=== PATIENT | female | born 1995 | race Caucasian/White ===

== ENCOUNTER 2017-02-21 11:59 | Emergency (ER) | payer OTHER ==
[2017-02-21 12:41] VITALS: BP 108/63
--- NOTE | 2017-02-21 13:35 | UC ---
Complaint Female HPI - HPI Summary HPI Summary: Patient has had urinary incontinence for over 1 year, feels pressure and sometimes cant make it to the bathroom. starting having dysuria 2 days ago. - History Of Current Complaint Chief Complaint: UCGU Stated Complaint: URINARY Time Seen by Provider: 02/21/17 12:41 Hx Obtained From: Patient Hx Last Menstrual Period: 02/15/17 ?: No Onset/Duration: Sudden Onset, Lasting Days Timing: Lasting Days Severity Initially: Moderate Severity Currently: Moderate Character: Burning Aggravating Factor(s): Urination - Allergies/Home Medications Allergies/Adverse Reactions: Allergies Allergy/AdvReac Type Severity Reaction Status Date / Time No Known Allergies Allergy Verified 02/21/17 12:41 PMH/Surg Hx/FS Hx/Imm Hx Previously Healthy: Yes - Surgical History Surgical History: None - Family History Known Family History: Positive: None Negative: Hypertension - Social History Alcohol Use: None Substance Use Type: None Smoking Status (MU): Former Smoker When Did the Patient Quit Smoking/Using Tobacco: 10/08 - Immunization History Most Recent Influenza Vaccination: Not the Season Vaccination Up to Date: Yes Review of Systems Constitutional: Negative Skin: Negative Eyes: Negative ENT: Negative Respiratory: Negative Cardiovascular: Negative Gastrointestinal: Negative Genitourinary: Dysuria, Other - incontinence Motor: Negative Neurovascular: Negative Musculoskeletal: Negative Neurological: Negative Psychological: Negative All Other Systems Reviewed And Are Negative: Yes Physical Exam Triage Information Reviewed: Yes Appearance: Well-Appearing, Well-Nourished, Pain Distress Vital Signs: Initial Vital Signs Temp 97.4 F 02/21/17 12:36 Pulse 61 02/21/17 12:36 Resp 16 02/21/17 12:36 BP 108/63 02/21/17 12:36 Pulse Ox 99 02/21/17 12:36 Vital Signs Reviewed: Yes Eye Exam: Normal ENT Exam: Normal Dental Exam: Normal Neck exam: Normal Respiratory Exam: Normal Cardiovascular Exam: Normal Abdominal Exam: Normal Abdomen Description: Positive: Nontender, No Organomegaly, Soft, Other: - Pelvic exam: outer labia red and irritated, no lesions noted, vaginal velasco pink , white cheesey discharge, no cervical motion tenderness, manual exam normal Bowel Sounds: Positive: Present Musculoskeletal Exam: Normal Musculoskeletal: Positive: Strength Intact, ROM Intact, No Edema Neurological Exam: Normal Neurological: Positive: Alert, Muscle Tone Normal Psychological Exam: Normal Skin Exam: Normal Complaint Female Dx - Course Course Of Treatment: hx obtained, exam performed ,meds reviewed, pelvic exam performed, treated for vaginitis, no treatment for UTI given, urine culture obtained and sent. Referral to urology for her urge incontinence - Differential Dx/Diagnosis Differential Diagnosis/HQI/PQRI: Cervicitis, Sexually Transmitted Disease, Ureteral Stone, Urinary Tract Infection Provider Diagnoses: vagintitis. dysuria. urge incontinence Discharge - Discharge Plan Condition: Stable Disposition: HOME Prescriptions: Fluconazole [Diflucan 150 MG (NF)] 150 mg PO WEEKLY #2 tab Patient Education Materials: Urinary Incontinence (ED), Vaginitis (ED) Referrals: Alysha Santos MD [Medical Doctor] - Sourav Anthony MD,Pravin Mirza [Medical Doctor] - Additional Instructions: 1. take the medication as prescribed. 2. Follow up with Urology for the incontinence
--- NOTE | 2017-02-23 07:13 | UC ---
Progress - Progress Note Progress Note: note reviewed along with HPI and exam. Vaginitis suggested clinically. I have sent Rx for flagyl bid for 10 days.
== END 2017-02-21 13:34 | disposition home or self-care (01) ==
LOC: UCCORT 11:59
DX: N76.0 Acute vaginitis (principal); R30.0 Dysuria; N39.41 Urge incontinence; Z87.891 Personal history of nicotine dependence
CPT/HCPCS: 81003; 87086; 87480; 87491; 87510; 87591; 87661; 99212; G0463

== ENCOUNTER 2017-08-24 20:04 | Emergency (ER) | payer OTHER ==
[2017-08-24 20:11] VITALS: BP 136/88
== END 2017-08-24 21:45 | disposition left against medical advice (07) ==
LOC: ED 20:04
DX: R45.851 Suicidal ideations (principal); Z53.21 Procedure and treatment not carried out due to patient leaving prior to being seen by health care provider

== ENCOUNTER 2017-08-25 12:29 | Inpatient (IN) | payer OTHER ==
[2017-08-25 13:42] LABS: ABS Basophils 0 10^3/ul (0-0.2); ABS Eosinophils 0.1 10^3/ul (0-0.6); ABS Lymphocytes 2.1 10^3/ul (1.0-4.8); ABS Monocytes 0.5 10^3/ul (0-0.8); ABS Neutrophils 6.1 10^3/ul (1.5-7.7); ABS Nucleated RBC 0 10^3/ul; Eosinophil % 1.6 % (0-6); Hematocrit 38 % (35-47); Hemoglobin 13.4 g/dl (12.0-16.0); Lymphocyte % 23.7 % (25-47); Mean Corpuscular HGB Conc 35 g/dl (31-36); Mean Corpuscular Hemoglobin 30 pg (27-31); Mean Corpuscular Volume 87 fL (80-97); Mean Platelet Volume 9 um3 (7.4-10.4); Nucleated Red Blood Cells % 0; Platelet Count 230 10^3/ul (150-450); Red Cell Distribution Width 12 % (10.5-15); White Blood Count 8.9 10^3/ul (3.5-10.8)
[2017-08-25 13:42] LABS: Urine Appearance Cloudy; Urine Blood Negative (Negative); Urine Color Yellow; Urine Ketones Negative (Negative); Urine Protein Negative (Negative); Urine Specific Gravity 1.016 (1.010-1.030); Urine Urobilinogen Negative (Negative)
[2017-08-25 14:03] LABS: EGFR Non-African American 102.3 (>60)
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
[2017-08-25] MEDS ORDERED: Mouth Piece, Nicotine* 1 EACH CARTRIDGE INH SCH (21:06)
[2017-08-25] MEDS ORDERED: Acetaminophen TAB* 325 MG PO PRN (21:07)
[2017-08-25] MEDS ORDERED: Al Hydrox/Mg Hydrox/Simet LIQ* 30 ML UDC PO PRN (21:07)
[2017-08-25] MEDS ORDERED: hydrOXYzine HCL TAB* 25 MG PO PRN (21:20)
[2017-08-25] MEDS ORDERED: hydrOXYzine HCL TAB* 25 MG ONE (21:27)
[2017-08-26] MEDS: Vitamin THERAPEUTIC TAB PO SCH (09:36)
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
--- NOTE | 2017-08-26 13:33 | PN ---
[facility]HU: Group Therapy Note - Service Type Service Type: 48010 Group Psychotherapy - Cognitive Behavioral Group Therapy ( CBT):Patient was attentive and participatory in CBT programming this morning, and remained in good behavioral control. Patient expressed positive insights regarding relevant treatment interventions and goals.
[2017-08-26] MEDS ORDERED: ARIPiprazole TAB* 2 MG PO ONE (15:05)
[2017-08-26] MEDS ORDERED: Gabapentin CAP(*) 300 MG PO PRN (15:51)
[2017-08-26] MEDS: clonazePAM TAB(*) 0.5 MG PO SCH (16:25)
[2017-08-26] MEDS: Prazosin CAP* 1 MG PO SCH (20:40)
[2017-08-27] MEDS ORDERED: ARIPiprazole TAB* 5 MG PO SCH (09:00)
[2017-08-27] MEDS: Vitamin THERAPEUTIC TAB PO SCH (09:08)
[2017-08-27] MEDS: clonazePAM TAB(*) 0.5 MG PO SCH ×2 (09:08→16:59)
[2017-08-27] MEDS: Methylphenidate TAB* 5 MG PO SCH ×2 (09:08→13:41)
[2017-08-27] MEDS: Prazosin CAP* 1 MG PO SCH (20:51)
[2017-08-28] MEDS: ARIPiprazole TAB* 5 MG PO SCH (08:16)
[2017-08-28] MEDS: Vitamin THERAPEUTIC TAB PO SCH (08:17)
[2017-08-28] MEDS: clonazePAM TAB(*) 0.5 MG PO SCH ×2 (08:19→16:11)
[2017-08-28] MEDS: Methylphenidate TAB* 5 MG PO SCH ×2 (08:19→13:29)
[2017-08-28] MEDS: Nicotine Inhaler* 10 MG AMP INH PRN ×2 (09:59→16:11)
--- NOTE | 2017-08-28 17:30 | PN ---
Subjective - Subjective Subjective: Mood is improving, she feels less depressed and anxious. She denies SI or urges for sib. She is sleeping longer but sleep is restless, she woke up early this morning and could not go back to sleep. She denies side effects from prescribed meds. Per staff, she is visible in the milieu and adherent to routines. Objective - Appearance Appearance: Healthy Appearing Dysmorphic Features: No Hygiene: Normal Grooming: Well Kept - Behavior Psychomotor Activities: Normal Exhibits Abnormal Movement: No - Attitude and Relatedness Attitude and Relatedness: Superficially Cooperative Eye Contact: Fair - Speech Quality: Unpressured Latencies: Normal Quantity: Appropriate - Mood Patient's Decription of Mood: better - Affect Observed Affect: Constricted Affect Consistent with: Dysphoria - Thought Process Patient's Thought Process: Coherent, Goal Directed Thought Content: No Passive Wish, No Suicidal Planning, No Homicidal Ideation, No Paranoid Ideation - Sensorium Experiencing Hallucinations: No, Sensorium is Clear - Level of Consciousness Level of Consciousness: Alert Orientation: Yes Intact - Impulse Control Impulse Control: Intact - Insight and Judgement Insight and Judgement: Poor - Group Participation Particating in Group Activities: Yes - Medication Management Medication Management Adherence: Yes Assessment - Assessment Merits Inpatient Hospitalization: For Ongoing Evaluation, Consolidate Improvements, For Discharge Planning Inpatient DSM-IV Dx: PTSD; Bioplar II; ADHD; Clinical Impression: Stabilizing in this structured setting with subjective improvements in previous mood and anxiety symptoms, absence of SI or urges for SIB. Tolerating medication trials. She needs continued admission for stabilization. Plan - Plan Treatment Plan: Name: MARLYN FREIRE Birthdate: 1995 [id number] Medications: Current Medications Acetaminophen (Tylenol Tab*) 650 mg PO Q4H PRN PRN Reason: PAIN or TEMP > 101 F Last Admin: 08/27/17 18:08 Dose: 650 mg Al Hydrox/Mg Hydrox/Simethicone (Maalox Plus*) 30 ml PO Q4H PRN PRN Reason: INDIGESTION Aripiprazole (Abilify Tab*) 7.5 mg PO DAILY [facility] Last Admin: 08/28/17 08:16 Dose: 7.5 mg Clonazepam (Klonopin Tab(*)) 0.5 mg PO BID@0900,1700 [facility] Last Admin: 02/04/18 16:11 Dose: 0.5 mg Device (Nicotine Mouth Piece*) 1 each INH .CARTRIDGE [facility] Gabapentin (Neurontin Cap(*)) 300 mg PO Q4H PRN PRN Reason: ANXIETY Methylphenidate HCl (Ritalin Tab*) 5 mg PO BID@09,13 [facility] Last Admin: 08/28/17 13:29 Dose: 5 mg Multivitamins (Theragran Tab*) 1 tab PO DAILY [facility] Last Admin: 08/28/17 08:17 Dose: 1 tab Nicotine (Nicotine Inhaler*) 10 mg INH Q2H PRN PRN Reason: CRAVING Last Admin: 08/28/17 16:11 Dose: 10 mg Nicotine Polacrilex (Nicotine Gum*) 2 mg PO Q2H PRN PRN Reason: CRAVING Prazosin HCl (Minipress Cap*) 2 mg PO BEDTIME [facility] Last Admin: 08/27/17 20:51 Dose: 2 mg - Discharge Plan Discharge Plan: Outpatient Follow Up Outpatient Program: [facility]
[2017-08-28] MEDS: Prazosin CAP* 1 MG PO SCH (19:21)
[2017-08-29] MEDS: clonazePAM TAB(*) 0.5 MG PO SCH ×2 (07:42→16:59)
[2017-08-29] MEDS: ARIPiprazole TAB* 5 MG PO SCH (07:43)
[2017-08-29] MEDS: Vitamin THERAPEUTIC TAB PO SCH (07:43)
[2017-08-29] MEDS: Methylphenidate TAB* 5 MG PO SCH ×2 (07:45→12:56)
[2017-08-29] MEDS: Nicotine Inhaler* 10 MG AMP INH PRN ×2 (10:25→19:16)
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
[2017-08-29] MEDS ORDERED: clonazePAM TAB(*) 0.5 MG PO PRN (19:28)
[2017-08-29] MEDS: Prazosin CAP* 5 MG PO SCH (21:32)
[2017-08-30] MEDS: Methylphenidate TAB* 5 MG PO SCH ×3 (07:38→17:34)
[2017-08-30] MEDS: ARIPiprazole TAB* 5 MG PO SCH (07:39)
[2017-08-30] MEDS: Gabapentin CAP(*) 300 MG PO SCH ×3 (07:39→17:34)
[2017-08-30] MEDS: Vitamin THERAPEUTIC TAB PO SCH (07:39)
[2017-08-30] MEDS: Nicotine Inhaler* 10 MG AMP INH PRN ×2 (08:26→17:35)
--- NOTE | 2017-08-30 12:08 | PN ---
Subjective - Subjective Subjective: Psychiatric Attending progress note slept much better last night with increase in Prazosin focus improved with ritalin. much less distracted. still feeling anxiety especially in the evening. begins to have partial panic symtoms attended groups. hyperarousal symptoms are still problematic. MSE: well developed and nourished well related. mood: improved brighter affect. not as flat. more reactive organized and coherent content: no psychotic symptoms, no urge to cut self today denies suicidal ideation, intent or plan. felt lonely without her room mate who was discharged today. talked today about her mother and how self centered mother is. she feels like she wants to take a break from having contact with mother but feels mother would be very upset about this and that her sisters may not understand. encouraged her to talk to therapist about this when she is discharged. praised patient for all the steps she is taking toward recovery and learning about anxiety and depression and advocating for her own recovery. insight improving. judgment improving. Impression: ADHD PTSD Severe bipolar Disorder depressed panic disorder Plan: start klonopin 1 mg Q 6 pm increase Gabapentin to 400 mg tid abilify 10 mg qam prazosin 5 mg qhs ritalin 5 mg TID
--- NOTE | 2017-08-30 13:14 | PN ---
MHU: Group Therapy Note - Service Type Service Type: [id number] Group Psychotherapy - Cognitive Behavioral Group Therapy ( CBT):Patient was attentive and participatory in CBT programming this morning, and remained in good behavioral control. Patient expressed positive insights regarding relevant treatment interventions and goals.
[2017-08-30] MEDS ORDERED: clonazePAM TAB(*) 1 MG PO PRN (18:00)
[2017-08-30] MEDS: clonazePAM TAB(*) 1 MG PO PRN (18:37)
[2017-08-30] MEDS: Prazosin CAP* 5 MG PO SCH (20:43)
[2017-08-30] MEDS: Nicotine GUM* 2 MG PO PRN (20:44)
[2017-08-31] MEDS: Vitamin THERAPEUTIC TAB PO SCH (07:47)
[2017-08-31] MEDS: Methylphenidate TAB* 5 MG PO SCH ×3 (07:47→17:00)
[2017-08-31] MEDS: Gabapentin CAP(*) 400 MG PO SCH ×3 (07:47→16:59)
[2017-08-31] MEDS: Nicotine Inhaler* 10 MG AMP INH PRN ×2 (07:48→17:00)
[2017-08-31] MEDS: ARIPiprazole TAB* 5 MG PO SCH (07:48)
[2017-08-31] MEDS: Nicotine GUM* 2 MG PO PRN (10:53)
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
[2017-08-31] MEDS: clonazePAM TAB(*) 1 MG PO PRN (18:21)
[2017-08-31] MEDS: Prazosin CAP* 5 MG PO SCH (20:29)
[2017-09-01] MEDS: Methylphenidate ER 27 MG TAB PO SCH (07:52)
[2017-09-01] MEDS: ARIPiprazole TAB* 5 MG PO SCH (08:55)
[2017-09-01] MEDS: Vitamin THERAPEUTIC TAB PO SCH (08:55)
[2017-09-01] MEDS: Nicotine Inhaler* 10 MG AMP INH PRN ×3 (08:57→21:50)
[2017-09-01] MEDS: Gabapentin CAP(*) 400 MG PO SCH ×3 (08:57→17:31)
--- NOTE | 2017-09-01 11:44 | PN ---
MHU: Group Therapy Note - Service Type Service Type: [id number] Group Psychotherapy - Cognitive Behavioral Group Therapy ( CBT):Patient was attentive and participatory in CBT programming this morning, and remained in good behavioral control. Patient expressed positive insights regarding relevant treatment interventions and goals.
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
[2017-09-01] MEDS: Methylphenidate TAB* 5 MG PO SCH (15:56)
--- NOTE | 2017-09-01 16:36 | PN ---
MHU: Group Therapy Note - Service Type Service Type: [id number] Group Psychotherapy - Medication Education Group: Patient joined group late and left early. She was pleasant and politely excused herself.
[2017-09-01] MEDS ORDERED: clonazePAM TAB(*) 1 MG PO SCH (18:00)
[2017-09-01] MEDS: Prazosin CAP* 5 MG PO SCH (20:40)
[2017-09-02] MEDS: Methylphenidate ER 27 MG TAB PO SCH (07:43)
[2017-09-02 08:12] VITALS: BP 116/67
[2017-09-02] MEDS: Gabapentin CAP(*) 400 MG PO SCH ×3 (08:28→16:11)
[2017-09-02] MEDS: ARIPiprazole TAB* 5 MG PO SCH (08:28)
[2017-09-02] MEDS: Vitamin THERAPEUTIC TAB PO SCH (08:28)
[2017-09-02] MEDS: Nicotine Inhaler* 10 MG AMP INH PRN ×2 (08:30→15:18)
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
[2017-09-02] MEDS: Methylphenidate TAB* 5 MG PO SCH (15:18)
== END 2017-09-02 16:50 | disposition home or self-care (01) | DRG 885 ==
LOC: ED 12:29 → BSU 20:34
PROVIDERS: ADMIT Psychiatry & Neurology Psychiatry; ATTEND Psychiatry & Neurology Psychiatry
PROC: GZHZZZZ Group Psychotherapy (ICD-10-PCS; principal; 2017-08-25)
DX: F31.81 Bipolar II disorder (principal); F41.9 Anxiety disorder, unspecified; F43.10 Post-traumatic stress disorder, unspecified; Z62.810 Personal history of physical and sexual abuse in childhood; F90.9 Attention-deficit hyperactivity disorder, unspecified type; G47.00 Insomnia, unspecified; Z91.5 Personal history of self-harm; Z87.891 Personal history of nicotine dependence; Z81.8 Family history of other mental and behavioral disorders; Z56.0 Unemployment, unspecified
CPT/HCPCS: 36415; 80053; 80307; 80320; 80329; 81003; 84443; 85025; 90853; 99222; 99231; 99232; 99238; 99284; A9270-GY; G0480

== ENCOUNTER 2017-11-22 19:17 | Emergency (ER) | payer OTHER ==
[2017-11-22 19:46] VITALS: BP 104/67
--- NOTE | 2017-11-22 19:59 | UC ---
UC General HPI - HPI Summary HPI Summary: pt is c/o some intermittent nausea with vomiting for about 5 days. she denies fever, abdominal pain and diarrhea. she is on medication for Bipolar and recently ran out of the Latuda for a couple of days but has since resumed it. her last lithium level was on 11/14/17, it was wnl( reviewed by myself). she has no current s/s's. pt denies being suicidal, homicidal and good support from her partner. - History of Current Complaint Chief Complaint: UCGI Stated Complaint: EMESIS Time Seen by Provider: 11/22/17 19:36 Hx Obtained From: Patient, Family/[employer] Hx Last Menstrual Period: 11/01/17 Pain Intensity: 0 Associated Signs & Symptoms: Negative: Abdominal Pain, Diarrhea, Diaphoresis, Fever - Allergy/Home Medications Allergies/Adverse Reactions: Allergies Allergy/AdvReac Type Severity Reaction Status Date / Time Adhesive Tape Allergy Rash And Verified 11/22/17 19:46 Itching Home Medications: Home Medications Gabapentin CAP(*) [Neurontin 400 mg CAP(*)] 300 mg PO 0900,1300,1700 MDD 1600 [History Confirmed 11/22/17] Tappan Carbonate TAB* 600 mg PO BID 11/22/17 [History Confirmed 11/22/17] Lurasidone(*) [Latuda] 40 mg PO DAILY 11/22/17 [History Confirmed 11/22/17] Methylphenidate HCl [Ritalin LA] 36 mg PO DAILY 11/22/17 [History Confirmed 08/11] Prazosin CAP* [Minipress CAP*] 1 mg PO BEDTIME MDD 5 mg 11/22/17 [History Confirmed 11/22/17] clonazePAM TAB(*) [Klonopin TAB(*)] 1 mg PO DAILY@18 PRN MDD 1 mg 11/22/17 [ History Confirmed 11/22/17] PMH/Surg Hx/FS Hx/Imm Hx Psychological History: Bipolar Disorder - Surgical History Surgical History: None - Family History Known Family History: Positive: None Negative: Hypertension - Social History Occupation: Employed Full-time Lives: With Family Alcohol Use: None Substance Use Type: None Smoking Status (MU): Light Every Day Tobacco Smoker Type: Cigarettes Amount Used/How Often: 5-10 cigs daily Length of Time of Smoking/Using Tobacco: 5 years Have You Smoked in the Last Year: Yes When Did the Patient Quit Smoking/Using Tobacco: 10/08 - Immunization History Most Recent Influenza Vaccination: n/a Most Recent Pneumonia Vaccination: n/a Vaccination Up to Date: Yes Review of Systems Constitutional: Negative Skin: Negative Eyes: Negative ENT: Negative Respiratory: Negative Cardiovascular: Negative Gastrointestinal: Vomiting, Nausea Genitourinary: Negative Motor: Negative Neurovascular: Negative Musculoskeletal: Negative Neurological: Negative Psychological: Negative Is Patient Immunocompromised?: No All Other Systems Reviewed And Are Negative: Yes Physical Exam Triage Information Reviewed: Yes Appearance: Well-Appearing Vital Signs: Initial Vital Signs Temp 97.8 F 11/22/17 19:38 Pulse 74 11/22/17 19:38 Resp 18 11/22/17 19:38 BP 104/67 11/22/17 19:38 Pulse Ox 99 11/22/17 19:38 Vital Signs Reviewed: Yes Eyes: Positive: Conjunctiva Clear ENT: Positive: Pharynx normal, TMs normal. Negative: Nasal congestion, Nasal drainage Neck: Positive: Supple, Nontender, No Lymphadenopathy Respiratory: Positive: Lungs clear, Normal breath sounds Cardiovascular: Positive: RRR, No Murmur Abdomen Description: Positive: Nontender, No Organomegaly, Soft Bowel Sounds: Positive: Present Musculoskeletal: Positive: ROM Intact Neurological: Positive: Alert Psychological: Positive: Normal Response To Family, Age Appropriate Behavior Skin Exam: Normal Course/Dx - Course Course Of Treatment: no current s/s's, recent lithium level wnl. no concern for seratonin syndrom. possible adverse reaction to abrupt withdrawl and or use of the Latuda. pt to f/u with her mental health provider tomorrow. - Differential Dx - Multi-Symptom Provider Diagnoses: nausea/vomiting. possible medication withdrawl/side effect Discharge - Sign-Out/Discharge Documenting (check all that apply): Discharge/Admit/Transfer - Discharge Plan Condition: Stable Disposition: HOME Patient Education Materials: Acute Nausea and Vomiting (ED), Adverse Drug Reaction (ED) Forms: *Work Release Referrals: Jose Luis PAUL,Teddy Fernandes [Primary Care Provider] - 1 Day - Billing Disposition and Condition Condition: STABLE Disposition: HOME
== END 2017-11-22 20:18 | disposition home or self-care (01) ==
LOC: UCCORT 19:17
DX: R11.2 Nausea with vomiting, unspecified (principal); F17.210 Nicotine dependence, cigarettes, uncomplicated
CPT/HCPCS: 99211; G0463

== ENCOUNTER 2018-02-21 14:13 | Inpatient (IN) | payer OTHER ==
[2018-02-21] MEDS ORDERED: Tetan/Diph/Pertus SYR(Tdap)* 0.5 ML SYR(BOOSTRIX) use SYR IM ONE (14:33)
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
[2018-02-21 15:00] LABS: ABS Basophils 0 10^3/ul (0-0.2); ABS Eosinophils 0.2 10^3/ul (0-0.6); ABS Lymphocytes 2.3 10^3/ul (1.0-4.8); ABS Monocytes 0.7 10^3/ul (0-0.8); ABS Neutrophils 7.3 10^3/ul (1.5-7.7); ABS Nucleated RBC 0 10^3/ul; Eosinophil % 1.8 % (0-6); Hematocrit 38 % (35-47); Hemoglobin 13.3 g/dl (12.0-16.0); Lymphocyte % 21.9 % (25-47); Mean Corpuscular HGB Conc 35 g/dl (31-36); Mean Corpuscular Hemoglobin 30 pg (27-31); Mean Corpuscular Volume 87 fL (80-97); Mean Platelet Volume 8.6 um3 (7.4-10.4); Nucleated Red Blood Cells % 0; Platelet Count 242 10^3/ul (150-450); Red Blood Count 4.42 10^6/ul (4.00-5.40); Red Cell Distribution Width 12 % (10.5-15); White Blood Count 10.5 10^3/ul (3.5-10.8)
[2018-02-21 15:24] LABS: Lithium 0.76 mmol/L (0.6-1.2)
[2018-02-21] MEDS ORDERED: Al Hydrox/Mg Hydrox/Simet LIQ* 30 ML UDC PO PRN (21:15)
[2018-02-21] MEDS ORDERED: Mouth Piece, Nicotine* 1 EACH CARTRIDGE INH SCH (21:15)
[2018-02-21] MEDS: Lithium Carbonate TAB* 300 MG PO SCH (21:55)
[2018-02-21] MEDS: Nicotine Inhaler* 10 MG AMP INH PRN (21:57)
[2018-02-22] MEDS: Vitamin THERAPEUTIC TAB PO SCH (08:17)
[2018-02-22] MEDS: lamoTRIgine TAB(*) 25 MG PO SCH (08:17)
[2018-02-22] MEDS: Lithium Carbonate TAB* 300 MG PO SCH ×2 (08:18→20:36)
[2018-02-22] MEDS: Gabapentin CAP(*) 100 MG PO SCH ×2 (15:03→20:36)
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
[2018-02-22] MEDS: Prazosin CAP* 1 MG PO SCH (20:36)
[2018-02-22] MEDS ORDERED: QUEtiapine TAB* 25 MG PO SCH (21:00)
[2018-02-23] MEDS: lamoTRIgine TAB(*) 25 MG PO SCH (08:25)
[2018-02-23] MEDS: Gabapentin CAP(*) 100 MG PO SCH (08:25)
[2018-02-23] MEDS: Lithium Carbonate TAB* 300 MG PO SCH ×2 (08:25→20:18)
[2018-02-23] MEDS: Vitamin THERAPEUTIC TAB PO SCH (08:26)
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
--- NOTE | 2018-02-23 13:03 | PN ---
[facility]: Group Therapy Note - Service Type Service Type: 31189 Group Psychotherapy - Cognitive Behavioral Group Therapy ( CBT):Patient was attentive and participatory in CBT programming this morning, and remained in good behavioral control. Patient expressed positive insights regarding relevant treatment interventions and goals.
[2018-02-23] MEDS: Gabapentin CAP(*) 300 MG PO SCH ×2 (13:54→20:18)
[2018-02-23] MEDS: Nicotine Inhaler* 10 MG AMP INH PRN (15:39)
[2018-02-23] MEDS: QUEtiapine TAB* 100 MG PO SCH (20:18)
[2018-02-23] MEDS: Prazosin CAP* 1 MG PO SCH (20:18)
[2018-02-24] MEDS: Lithium Carbonate TAB* 300 MG PO SCH ×2 (08:50→20:21)
[2018-02-24] MEDS: Vitamin THERAPEUTIC TAB PO SCH (08:50)
[2018-02-24] MEDS: Gabapentin CAP(*) 300 MG PO SCH ×3 (08:50→20:20)
[2018-02-24] MEDS: lamoTRIgine TAB(*) 25 MG PO SCH (08:50)
[2018-02-24] MEDS: Nicotine Inhaler* 10 MG AMP INH PRN ×2 (10:31→20:46)
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
[2018-02-24] MEDS: Prazosin CAP* 1 MG PO SCH (20:20)
[2018-02-24] MEDS: QUEtiapine TAB* 100 MG PO SCH (20:21)
[2018-02-25] MEDS: lamoTRIgine TAB(*) 25 MG PO SCH (08:52)
[2018-02-25] MEDS: Vitamin THERAPEUTIC TAB PO SCH (08:52)
[2018-02-25] MEDS: Gabapentin CAP(*) 300 MG PO SCH ×3 (08:52→21:09)
[2018-02-25] MEDS: Lithium Carbonate TAB* 300 MG PO SCH ×2 (08:52→21:09)
[2018-02-25] MEDS: Nicotine Inhaler* 10 MG AMP INH PRN ×3 (09:59→20:40)
--- NOTE | 2018-02-25 20:51 | PN ---
Subjective - Subjective Date of Service: 02/25/18 Service Type: 26515 Hosp care 15 min low complexity Subjective: Nika reports that she has been feeling well best part of the day to feel somewhat depressed during late afternoon. Over all she thinks she is ready for discharge home. Denies any self harming thoughts, hallucinations or delusions. Tolerating her meds well. Appears to be engaged with peers in the milieu. Objective - Appearance Appearance: Well Developed/Nourished, Healthy Appearing Dysmorphic Features: No Hygiene: Normal Grooming: Well Kept - Behavior Psychomotor Activities: Normal Exhibits Abnormal Movement: No - Attitude and Relatedness Attitude and Relatedness: Appropriate Eye Contact: Good - Speech Quality: Unpressured Latencies: Normal Quantity: Appropriate - Mood Patient's Decription of Mood: "Okay" - Affect Observed Affect: Good Affect Consistent with: Euthymia - Thought Process Patient's Thought Process: Coherent, Goal Directed Thought Content: No Passive Wish, No Suicidal Planning, No Homicidal Ideation, No Paranoid Ideation - Sensorium Experiencing Hallucinations: No, Sensorium is Clear Type of Hallucinations: Visual: No, Auditory: No, Command: No - Level of Consciousness Orientation: Yes Intact, Yes Orientated to Time, Yes Orientated to Place, Yes Orientated to Person - Impulse Control Impulse Control: Intact - Insight and Judgement Insight and Judgement: Fair - Group Participation Particating in Group Activities: Yes - Medication Management Medication Management Adherence: Yes Assessment - Assessment Merits Inpatient Hospitalization: Consolidate Improvements Inpatient DSM-V Dx: F31.81 Clinical Impression: Appears to have improved significantly on current treatments. Plan - Plan Treatment Plan: Name: NIKA FREIRE Birthdate: 1995 [id number] Continued Medication Management: Continue Outpt Medication Medications: Current Medications Acetaminophen (Tylenol Tab*) 650 mg PO Q4H PRN PRN Reason: PAIN or TEMP > 101 F Al Hydrox/Mg Hydrox/Simethicone (Maalox Plus*) 30 ml PO Q4H PRN PRN Reason: INDIGESTION Device (Nicotine Mouth Piece*) [address] Last Admin: 02/21/18 21:57 Dose: 1 each Gabapentin (Neurontin Cap(*)) [address] [facility] Last Admin: 02/25/18 14:19 Dose: 300 mg Lamotrigine (Lamictal Tab(*)) [address] [facility] Last Admin: 02/25/18 08:52 Dose: 50 mg [place] Carbonate ([place] Carbonate Tab*) [address] [facility] Last Admin: 02/25/18 08:52 Dose: 600 mg Multivitamins (Theragran Tab*) [address] [facility] Last Admin: 02/25/18 08:52 Dose: 1 tab Nicotine (Nicotine Inhaler*) 10 mg INH Q2H PRN PRN Reason: CRAVING Last Admin: 02/25/18 20:40 Dose: 10 mg Nicotine Polacrilex (Nicotine Gum*) 2 mg PO Q2H PRN PRN Reason: CRAVING Prazosin HCl (Minipress Cap*) [address] [facility] Last Admin: 02/24/18 20:20 Dose: 2 mg Quetiapine Fumarate (Seroquel Tab*) [address] [facility] Last Admin: 02/24/18 20:21 Dose: 100 mg - Discharge Plan Discharge Plan: Outpatient Follow Up Outpatient Program: [facility]
[2018-02-25] MEDS: QUEtiapine TAB* 100 MG PO SCH (21:08)
[2018-02-25] MEDS: Prazosin CAP* 1 MG PO SCH (21:09)
[2018-02-26] MEDS: Vitamin THERAPEUTIC TAB PO SCH (09:03)
[2018-02-26] MEDS: Gabapentin CAP(*) 300 MG PO SCH ×3 (09:03→20:28)
[2018-02-26] MEDS: lamoTRIgine TAB(*) 25 MG PO SCH (09:03)
[2018-02-26] MEDS: Lithium Carbonate TAB* 300 MG PO SCH ×2 (09:03→20:29)
[2018-02-26] MEDS: Nicotine Inhaler* 10 MG AMP INH PRN ×2 (11:25→17:49)
[2018-02-26] MEDS: Prazosin CAP* 1 MG PO SCH (20:29)
[2018-02-26] MEDS: QUEtiapine TAB* 100 MG PO SCH (20:30)
[2018-02-27] MEDS: Gabapentin CAP(*) 300 MG PO SCH ×3 (08:42→19:05)
[2018-02-27] MEDS: Vitamin THERAPEUTIC TAB PO SCH (08:42)
[2018-02-27] MEDS: lamoTRIgine TAB(*) 25 MG PO SCH (08:43)
[2018-02-27] MEDS: Lithium Carbonate TAB* 300 MG PO SCH ×2 (08:43→21:02)
[2018-02-27] MEDS: Nicotine Inhaler* 10 MG AMP INH PRN ×2 (09:24→16:18)
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
--- NOTE | 2018-02-27 13:10 | PN ---
MHU: Group Therapy Note - Service Type Service Type: [id number] Group Psychotherapy - Cognitive Behavioral Group Therapy ( CBT):Patient was attentive and participatory in CBT programming this morning, and remained in good behavioral control. Patient expressed positive insights regarding relevant treatment interventions and goals.
[2018-02-27] MEDS: QUEtiapine TAB* 100 MG PO SCH (21:01)
[2018-02-27] MEDS: Prazosin CAP* 1 MG PO SCH (21:02)
[2018-02-28] MEDS: lamoTRIgine TAB(*) 25 MG PO SCH (08:33)
[2018-02-28] MEDS: Vitamin THERAPEUTIC TAB PO SCH (08:33)
[2018-02-28] MEDS: Gabapentin CAP(*) 300 MG PO SCH ×3 (08:34→19:09)
[2018-02-28] MEDS: Lithium Carbonate TAB* 300 MG PO SCH ×2 (08:34→20:29)
[2018-02-28] MEDS: Nicotine Inhaler* 10 MG AMP INH PRN ×2 (09:54→16:10)
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
--- NOTE | 2018-02-28 13:01 | PN ---
MHU: Group Therapy Note - Service Type Service Type: [id number] Group Psychotherapy - Cognitive Behavioral Group Therapy ( CBT):Patient was attentive and participatory in CBT programming this morning, and remained in good behavioral control. Patient expressed positive insights regarding relevant treatment interventions and goals.
[2018-02-28] MEDS: Prazosin CAP* 1 MG PO SCH (20:29)
[2018-02-28] MEDS: QUEtiapine TAB* 100 MG PO SCH (20:29)
[2018-03-01] MEDS: Lithium Carbonate TAB* 300 MG PO SCH ×2 (09:07→20:14)
[2018-03-01] MEDS: lamoTRIgine TAB(*) 25 MG PO SCH (09:08)
[2018-03-01] MEDS: Vitamin THERAPEUTIC TAB PO SCH (09:08)
[2018-03-01] MEDS: Nicotine GUM* 2 MG PO PRN (09:09)
[2018-03-01] MEDS: Nicotine Inhaler* 10 MG AMP INH PRN ×3 (09:09→20:20)
[2018-03-01] MEDS: Gabapentin CAP(*) 300 MG PO SCH ×3 (09:11→20:14)
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
[2018-03-01] MEDS: Prazosin CAP* 1 MG PO SCH (20:15)
[2018-03-01] MEDS: QUEtiapine TAB* 100 MG PO SCH (20:15)
[2018-03-02] MEDS: lamoTRIgine TAB(*) 25 MG PO SCH (08:26)
[2018-03-02] MEDS: Vitamin THERAPEUTIC TAB PO SCH (08:27)
[2018-03-02] MEDS: Lithium Carbonate TAB* 300 MG PO SCH ×2 (08:27→20:30)
[2018-03-02] MEDS: Gabapentin CAP(*) 300 MG PO SCH ×3 (08:28→19:08)
--- NOTE | 2018-03-02 11:38 | PN ---
MHU: Group Therapy Note - Service Type Service Type: [id number] Group Psychotherapy - Cognitive Behavioral Group Therapy ( CBT):Patient was attentive and participatory in CBT programming this morning, and remained in good behavioral control. Patient expressed positive insights regarding relevant treatment interventions and goals.
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
[2018-03-02] MEDS: Nicotine Inhaler* 10 MG AMP INH PRN (18:29)
[2018-03-02] MEDS: QUEtiapine TAB* 100 MG PO SCH (20:31)
[2018-03-02] MEDS: Prazosin CAP* 1 MG PO SCH (20:31)
[2018-03-03] MEDS: Vitamin THERAPEUTIC TAB PO SCH (08:50)
[2018-03-03] MEDS: Lithium Carbonate TAB* 300 MG PO SCH ×2 (08:50→20:11)
[2018-03-03] MEDS: Gabapentin CAP(*) 300 MG PO SCH ×3 (08:51→19:10)
[2018-03-03] MEDS: lamoTRIgine TAB(*) 25 MG PO SCH (08:51)
[2018-03-03] MEDS: Nicotine Inhaler* 10 MG AMP INH PRN ×3 (08:51→18:35)
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
[2018-03-03] MEDS: Nicotine GUM* 2 MG PO PRN (18:35)
[2018-03-03] MEDS: Prazosin CAP* 1 MG PO SCH (20:11)
[2018-03-03] MEDS: QUEtiapine TAB* 100 MG PO SCH (20:12)
[2018-03-03] MEDS: Acetaminophen TAB* 325 MG PO PRN (20:13)
[2018-03-04] MEDS: Lithium Carbonate TAB* 300 MG PO SCH ×2 (09:11→20:27)
[2018-03-04] MEDS: lamoTRIgine TAB(*) 25 MG PO SCH (09:11)
[2018-03-04] MEDS: Vitamin THERAPEUTIC TAB PO SCH (09:11)
[2018-03-04] MEDS: Gabapentin CAP(*) 300 MG PO SCH ×3 (09:13→19:04)
[2018-03-04] MEDS: Acetaminophen TAB* 325 MG PO PRN (16:56)
[2018-03-04] MEDS: Nicotine Inhaler* 10 MG AMP INH PRN (19:04)
[2018-03-04] MEDS: Prazosin CAP* 1 MG PO SCH (20:27)
[2018-03-04] MEDS: QUEtiapine TAB* 100 MG PO SCH (20:27)
[2018-03-05] MEDS: lamoTRIgine TAB(*) 25 MG PO SCH (08:22)
[2018-03-05] MEDS: Vitamin THERAPEUTIC TAB PO SCH (08:23)
[2018-03-05] MEDS: Lithium Carbonate TAB* 300 MG PO SCH ×2 (08:23→20:44)
[2018-03-05] MEDS: Gabapentin CAP(*) 300 MG PO SCH ×3 (08:25→19:02)
[2018-03-05] MEDS: Nicotine Inhaler* 10 MG AMP INH PRN ×2 (10:30→19:03)
[2018-03-05] MEDS: QUEtiapine TAB* 100 MG PO SCH (20:46)
[2018-03-05] MEDS: Prazosin CAP* 1 MG PO SCH (20:48)
[2018-03-06 07:36] VITALS: BP 108/68
[2018-03-06] MEDS: lamoTRIgine TAB(*) 25 MG PO SCH (08:43)
[2018-03-06] MEDS: Vitamin THERAPEUTIC TAB PO SCH (08:43)
[2018-03-06] MEDS: Gabapentin CAP(*) 300 MG PO SCH (08:43)
[2018-03-06] MEDS: Lithium Carbonate TAB* 300 MG PO SCH (08:43)
[2018-03-06] MEDS: Nicotine GUM* 2 MG PO PRN (08:44)
[2018-03-06] MEDS: Nicotine Inhaler* 10 MG AMP INH PRN (08:44)
--- NOTE | 2018-03-06 11:47 | PN ---
MHU: Group Therapy Note - Service Type Service Type: [id number] Group Psychotherapy - Cognitive Behavioral Group Therapy ( CBT):Patient was attentive and participatory in CBT programming this morning, and remained in good behavioral control. Patient expressed positive insights regarding relevant treatment interventions and goals.
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
== END 2018-03-06 11:45 | disposition home or self-care (01) | DRG 885 ==
LOC: ED 14:13 → BSU 20:15
PROVIDERS: ADMIT Psychiatry & Neurology Psychiatry; ATTEND Psychiatry & Neurology Psychiatry
DX: F31.81 Bipolar II disorder (principal); R45.851 Suicidal ideations; F43.10 Post-traumatic stress disorder, unspecified; F90.9 Attention-deficit hyperactivity disorder, unspecified type; F60.3 Borderline personality disorder; F17.210 Nicotine dependence, cigarettes, uncomplicated; Z81.8 Family history of other mental and behavioral disorders
CPT/HCPCS: 36415; 80053; 80061; 80175; 80178; 80307; 80320; 80329; 83036; 84443; 84702; 85025; 90715; 90847; 90853; 93005; 99222; 99231; 99232; 99283; A9270-GY; G0480

== ENCOUNTER 2018-04-28 17:15 | Emergency (ER) | payer OTHER ==
--- NOTE | 2018-04-29 11:00 | UC ---
- Progress Note Progress Note: NO imaging studies done on 04/28/18 Discharge - Sign-Out/Discharge Documenting (check all that apply): Post-Discharge Follow Up All imaging exams completed and their final reports reviewed: No Studies - Discharge Plan Disposition: LEFT WITHOUT BEING SEEN Referrals: No Primary Care Phys,NOPCP [Primary Care Provider] - - Billing Disposition and Condition Disposition: Left Without Being Seen
== END 2018-04-28 17:57 | disposition left against medical advice (07) ==
LOC: UCCORT 17:15
DX: K08.9 Disorder of teeth and supporting structures, unspecified (principal); Z53.21 Procedure and treatment not carried out due to patient leaving prior to being seen by health care provider

== ENCOUNTER 2018-04-28 21:38 | Emergency (ER) | payer OTHER ==
[2018-04-28] MEDS ORDERED: Amoxicillin PO (*) 500 MG CAP PO ONE (21:51)
[2018-04-28] MEDS ORDERED: Ibuprofen ADULT LIQ* 600 MG/30 ML UDC PO ONE (21:51)
[2018-04-28] MEDS ORDERED: HYDROcodone/ACETAMIN 5-325 MG* 1 TAB PO ONE (21:52)
--- NOTE | 2018-04-28 21:56 | UC ---
Dental HPI - HPI Summary HPI Summary: pain to her L upper dental cap for about 3 months. much worse the past day. no swelling. tx with motrin. - History of Current Complaint Stated Complaint: TOOTH COMP. Time Seen by Provider: 04/28/18 21:43 Hx Obtained From: Patient Hx Last Menstrual Period: 11/01/17 Onset/Duration: Gradual Onset Severity: Severe Alleviating Factor(s): Nothing - Allergies/Home Medications Allergies/Adverse Reactions: Allergies Allergy/AdvReac Type Severity Reaction Status Date / Time Adhesive Tape Allergy Rash And Verified 04/28/18 21:59 Itching Home Medications: Home Medications Ibuprofen TAB* [Motrin TAB* 800 MG] 1,600 mg PO ONCE 04/28/18 [History Confirmed 04/28/18] Methylphenidate TAB* [Ritalin TAB*] 36 mg PO DAILY 04/28/18 [History Confirmed 04/28/18] clonazePAM TAB(*) [KlonoPIN TAB(*)] 2 mg PO BID 04/28/18 [History Confirmed 12/09] lamoTRIgine TAB(*) [Lamictal TAB(*)] 150 mg PO DAILY 04/28/18 [History Confirmed 04/28/18] PMH/Surg Hx/FS Hx/Imm Hx Psychological History: Bipolar Disorder - Surgical History Surgical History: None Surgery Procedure, Year, and Place: Pt denies prior surgical hx - Family History Known Family History: Positive: None Negative: Hypertension - Social History Lives: With Family Alcohol Use: None Alcohol Amount: pt denies use Substance Use Type: None Substance Use Comment - Amount & Last Used: pt denies use Smoking Status (MU): Current Every Day Smoker Type: Cigarettes Amount Used/How Often: 1 ppd Length of Time of Smoking/Using Tobacco: 5 years Have You Smoked in the Last Year: Yes When Did the Patient Quit Smoking/Using Tobacco: pt currently using tobacco - Immunization History Most Recent Influenza Vaccination: n/a Most Recent Pneumonia Vaccination: n/a Vaccination Up to Date: Yes Review of Systems Constitutional: Negative Skin: Negative Eyes: Negative ENT: Dental Pain Respiratory: Negative Cardiovascular: Negative Gastrointestinal: Negative Genitourinary: Negative Motor: Negative Neurovascular: Negative Musculoskeletal: Negative Neurological: Negative Psychological: Negative Is Patient Immunocompromised?: No All Other Systems Reviewed And Are Negative: Yes Physical Exam Triage Information Reviewed: Yes Appearance: Pain Distress Vital Signs Reviewed: Yes Eyes: Positive: Conjunctiva Clear ENT: Positive: Pharynx normal, TMs normal. Negative: Nasal congestion, Nasal drainage Dental: Positive: Percussion Tenderness @ - L upper posterior bicuspid(cap). Gum not fluctuant. Neck: Positive: Supple, Nontender, No Lymphadenopathy Respiratory: Positive: Lungs clear, Normal breath sounds Cardiovascular: Positive: RRR, No Murmur Abdomen Description: Positive: Nontender, No Organomegaly, Soft Bowel Sounds: Positive: Present Musculoskeletal: Positive: ROM Intact Neurological: Positive: Alert Psychological: Positive: Age Appropriate Behavior Skin Exam: Normal Dental Complaint Course/Dx - Course Course Of Treatment: pt advised on proper dosing of IB. she agrees to not take the [place] until she arrives home. will cover for possible infection and provide a minimal number of norco for pain control. need for dental f/u stressed. pt states is going to f/u [facility] next week. - Differential Dx/Diagnosis Provider Diagnoses: L upper posterior bicuspid pain. Discharge - Sign-Out/Discharge Documenting (check all that apply): Patient Departure All imaging exams completed and their final reports reviewed: No Studies - Discharge Plan Condition: Stable Disposition: HOME Prescriptions: Amoxicillin PO (*) [Amoxicillin 875 MG (*)] 875 mg PO BID 7 Days #14 tab HYDROcodone/ACETAMIN 5-325 MG* [[place] 5-325 TAB*] 1 tab PO Q6H PRN #8 tab MDD 4 PRN Reason: Pain (Dental) Patient Education Materials: Toothache (ED) Referrals: No Primary Care Phys,NOPCP [Primary Care Provider] - Additional Instructions: FOLLOW UP WITH [facility] SOON POSSIBLE - Billing Disposition and Condition Condition: STABLE Disposition: Home
[2018-04-28 21:59] VITALS: BP 134/87
== END 2018-04-28 22:16 | disposition home or self-care (01) ==
LOC: UCCORT 21:38
DX: K08.89 Other specified disorders of teeth and supporting structures (principal); F31.9 Bipolar disorder, unspecified; F17.210 Nicotine dependence, cigarettes, uncomplicated
CPT/HCPCS: 99212; A9270-GY; G0463

== ENCOUNTER 2018-09-01 17:57 | Emergency (ER) | payer OTHER ==
[2018-09-01 18:40] VITALS: BP 107/66
--- NOTE | 2018-09-01 18:56 | UC ---
Dental HPI - HPI Summary HPI Summary: Pt c/o left upper tooth pain . Pt has appointment with dental provider in 3 weeks but is concerned that she has an infection. - History of Current Complaint Chief Complaint: UCDentalProblem Stated Complaint: DENTAL ISSUE Time Seen by Provider: 09/01/18 18:47 Hx Obtained From: Patient Hx Last Menstrual Period: 08/23/18 ?: No Onset/Duration: Gradual Onset, Lasting Days, Still Present Severity: Moderate Pain Intensity: 6 Aggravating Factor(s): Heat, Cold, Chewing Alleviating Factor(s): Nothing Related History: Previous Dental Care on Same Tooth - Allergies/Home Medications Allergies/Adverse Reactions: Allergies Allergy/AdvReac Type Severity Reaction Status Date / Time Adhesive Tape Allergy Rash And Verified 09/01/18 18:29 Itching Home Medications: Home Medications [place] Carbonate TAB* 600 mg PO BEDTIME 09/01/18 [History Confirmed 09/01/18] PMH/Surg Hx/FS Hx/Imm Hx Previously Healthy: Yes - Surgical History Surgical History: None Surgery Procedure, Year, and Place: Pt denies prior surgical hx - Family History Known Family History: Positive: None Negative: Hypertension - Social History Occupation: Employed Part-time Lives: With Family Alcohol Use: Rare Alcohol Amount: pt denies use Substance Use Type: None Substance Use Comment - Amount & Last Used: pt denies use Smoking Status (MU): Current Every Day Smoker Type: Cigarettes Amount Used/How Often: 2-3 cigs/day Length of Time of Smoking/Using Tobacco: 5 years Have You Smoked in the Last Year: Yes When Did the Patient Quit Smoking/Using Tobacco: pt currently using tobacco - Immunization History Most Recent Influenza Vaccination: n/a Most Recent Pneumonia Vaccination: n/a Vaccination Up to Date: Yes Review of Systems All Other Systems Reviewed And Are Negative: Yes Constitutional: Positive: Negative Skin: Positive: Negative Eyes: Positive: Negative ENT: Positive: Dental Pain Respiratory: Positive: Negative Cardiovascular: Positive: Negative Gastrointestinal: Positive: Negative Genitourinary: Positive: Negative Motor: Positive: Negative Neurovascular: Positive: Negative Musculoskeletal: Positive: Negative Neurological: Positive: Negative Psychological: Positive: Negative Is Patient Immunocompromised?: No Physical Exam Triage Information Reviewed: Yes Appearance: Well-Appearing Vital Signs: Initial Vital Signs Temp 98 F 09/01/18 18:35 Pulse 80 09/01/18 18:35 Resp 15 09/01/18 18:35 BP 107/66 09/01/18 18:35 Pulse Ox 100 09/01/18 18:35 Vital Signs Reviewed: Yes Eye Exam: Normal ENT Exam: Normal Dental: Positive: Percussion Tenderness @ - left upper molars Neck exam: Normal Respiratory Exam: Normal Respiratory: Positive: No respiratory distress Musculoskeletal Exam: Normal Neurological Exam: Normal Psychological Exam: Normal Skin Exam: Normal Dental Complaint Course/Dx - Differential Dx/Diagnosis Differential Diagnosis/Dx: Dental Abscess, Dental Caries, Fractured Tooth Provider Diagnosis: Pain, dental, Dental abscess Discharge - Sign-Out/Discharge Documenting (check all that apply): Patient Departure All imaging exams completed and their final reports reviewed: No Studies - Discharge Plan Condition: Stable Disposition: HOME Prescriptions: Amoxicillin PO (*) [Amoxicillin 500 MG CAP*] 500 mg PO Q12H #20 cap Ibuprofen TAB* [Motrin TAB* 600 MG] 600 mg PO Q8H PRN #21 tab PRN Reason: Pain Lidocaine 2% VISCOUS* [Xylocaine 2% Viscous*] 15 ml SWISH SPIT Q4H PRN #1 btl PRN Reason: Pain Patient Education Materials: Toothache (ED) Referrals: [facility] [Outside] No Primary Care Phys,NOPCP [Primary Care Provider] - Additional Instructions: Please follow up with your dental care provider as soon as possible. - Billing Disposition and Condition Condition: STABLE Disposition: Home
== END 2018-09-01 19:04 | disposition home or self-care (01) ==
LOC: UCCORT 17:57
DX: K04.7 Periapical abscess without sinus (principal); K08.89 Other specified disorders of teeth and supporting structures; F17.210 Nicotine dependence, cigarettes, uncomplicated; Z91.09 Other allergy status, other than to drugs and biological substances
CPT/HCPCS: 99212; G0463